=== PATIENT | male | born 1985 ===

== ENCOUNTER 2024-10-02 21:41 | Emergency (ER) | payer SELFPAY ==
[2024-10-02] MEDS: Ketorolac 30 MG/ML SDV IM ONE (22:27)
[2024-10-02] MEDS: diazePAM 2 MG Tab PO ONE (22:27)
== END 2024-10-03 01:01 | disposition home or self-care (01) ==
LOC: MW.ED 21:41
DX: S43.401A Unspecified sprain of right shoulder joint, initial encounter (principal); Z79.899 Other long term (current) drug therapy; X58.XXXA Exposure to other specified factors, initial encounter
CPT/HCPCS: 71045; 73030; 96372; 99283; A9270; J1885; 99282

== ENCOUNTER 2024-11-10 08:54 | Emergency (ER) | payer MEDICAID ==
[2024-11-10 10:51] LABS: APPEARANCE,URINE CLEAR; BILIRUBIN,URINE NEGATIVE (NEGATIVE); COLOR,URINE YELLOW; GLUCOSE,URINE NEGATIVE (NEGATIVE); KETONES,URINE NEGATIVE (NEGATIVE); LEUKOCYTE ESTERASE,URINE NEGATIVE (NEGATIVE); NITRITE,URINE NEGATIVE (NEGATIVE); OCCULT BLOOD,URINE NEGATIVE (NEGATIVE); PH,URINE 6.5 (5.0-8.0); PROTEIN,URINE NEGATIVE (NEGATIVE); UROBILINOGEN,URINE 0.2 EU/dL (<2.0)
== END 2024-11-10 11:37 | disposition home or self-care (01) ==
LOC: MW.ED 08:54
DX: R39.82 Chronic bladder pain (principal)
CPT/HCPCS: 81003; 99283